=== PATIENT | male | born 1965 ===

== ENCOUNTER 2016-06-27 07:28 | Day surgery (SDC) | payer OTHER ==
[2016-06-16 14:21] VITALS: RESP 18
--- NOTE | 2016-06-27 07:58 | CP.SDSHP ---
Same Day Surgery H & P - History Proposed Procedure: Right foot 2, 3 ,4 ,5 digit Arthroplasty Pre-Op Diagnosis: Right 2nd, 3rd, 4th and 5th digit hammertoe deformities - Previous Medical/Surgical History Cardiac: Other Pulmonary: Other Endocrine/Metabolic: Other Neuro: Other Misc: Other Pain: 4.Moderate Pain - Allergies Allergies: Allergies No Known Allergies Allergy (Verified 02/20/16 13:18) - Physical Exam Vital Signs: Vital Signs 06/27/16 06/27/16 07:48 07:52 Temperature 97.6 F Pulse Rate 76 76 Respiratory 18 Rate Blood Pressure 129/69 O2 Sat by Pulse 97 Oximetry Mental Status: Alert & Oriented x3 Neuro: WNL Heart: WNL Lungs: WNL GI: WNL - {Optional Preform as Required} Breast: Other Abdomen: Other Rectal: Other Integument: Other SOCIAL WORK MSW: Other : Other Ortho: Other ENT: Other - Impression Impression: Pt was seen and examined in SDS. Pt NPO status was confirmed. All Pre-op testing and clearance was in the chart. Pt has exhausted all conservative treatment at this time and is opting for surgical intervention. Pt was explained procedure and post-operative course. All pt's questions were answered to satisfaction. No guarantees were made. Pt understands all risks, benefits and complications of procedure. Pt will follow-up with Dr. Bae Pt. Evaluated Today:Candidate for Anesthesia & Procedure: Yes - Date & Time Date: 06/27/16 Time: 10:00 Short Stay Discharge - Short Stay Discharge Admitting Diagnosis/Reason for Visit: M20.41 Disposition: HOME/ ROUTINE Follow-up: Follow up in Podiatry clinic at [facility] in 1 week Instructions: RICE Therapy (GEN), Cephalexin (By mouth), Oxycodone/ Acetaminophen (By mouth), Narcotic-Analgesic/Acetaminophen (By mouth) Additional Instructions (Diet, Activity): Partial weight bearing to right heel in surgical shoes. No weight bearing to right forefoot. Progress Note/Discharge Note with Instructions: Patient in good/stable condition for discharge home. Pt to resume medications per medical reconciliation. Resume regular diet. Please keep dressing clean, dry, & intact to surgical site, use plastic bag over bandage for showering, wear post op shoe at all times when ambulating, call clinic if you see signs of infection (redness, swelling, malodor), please make an appointment to see Dr. Bae in office/clinic within 1 week for post-op check.
--- NOTE | 2016-06-27 07:58 | CP.PCM.PN ---
Subjective - Date & Time of Evaluation Date of Evaluation: 06/27/16 Time of Evaluation: 08:00 - Subjective Subjective: 51 year old male patient with PMHx of DM, HTN presents today with Right foot 2nd , 3rd 4th and 5th digit hammertoe deformities. He states that he developed hammertoe deformities to 2-5 digits of right foot many years ago. Patient states that his toes generate pain when walking by rubbing against shoes. Patient states that he has tried orthotics and soft paddings which did not help to alleviate the pain. Patient was explained of the surgical plan and agrees with the plan. Patient's was present at the bedside at the time of visit. Patient now wishes for surgical intervention to correct the deformed toes to right foot. Patient confims NPO Objective - Vital Signs/Intake and Output Vital Signs (last 24 hours): Temp Pulse Resp BP Pulse Ox 97.6 F 76 18 129/69 97 06/27/16 07:52 06/27/16 07:52 06/27/16 07:52 06/27/16 07:52 06/27/16 07:52 - Constitutional Appears: Well, Non-toxic, No Acute Distress - Extremities Exam Additional comments: Derm: No open wound noted to all digits. No erythema noted. No drainage, no acute sign of infection is noted. Hyperkeratotic scar noted to dorsum of right foot secondary to previous surgery for fracture many years ago. Vasc: DP and PT pulses palpable 1/4 bilaterally. Increased skin temperature noted to the right lower extremity compared to left lower extremity. Mild edema noted to right foot and moderate non-pitting edema of right 2nd digit. Ortho: Pain on palpation to right 2nd digit. Pain with ROM to right AJ, STJ, and second MPJ. DIPJ flexion noted to all 4 lesser digits. Neuro: protective sensation grossly absent b/l. - Neurological Exam Neurological Exam: Alert, Awake, Oriented x3 - Psychiatric Exam Psychiatric exam: Normal Affect, Normal Mood - Skin Skin Exam: Normal Color, Warm Assessment and Plan - Assessment and Plan (Free Text) Assessment: 51 year old male patient presents with hammertoe deformities of right foot 2,3,4 ,5 digits Plan: Pt was seen and examined in SDS Pt NPO status was confirmed All Pre-op testing and clearance was in the chart Pt has exhausted all conservative treatment at this time and is opting for surgical intervention Pt was explained procedure and post-operative course All pt's questions were answered to satisfaction No guarantees were made Pt understands all risks, benefits and complications of procedure Pt will follow-up with Dr. Bae
[2016-06-27] MEDS ORDERED: ceFAZolin 1 GM in Sodium Chloride 0.9% 100 ML IVPB ONE (07:59)
[2016-06-27] MEDS ORDERED: Bupivacaine 0.5% 50 ML IJ ONE ×2 (07:59→11:15)
[2016-06-27] MEDS ORDERED: Lidocaine 1% Inj (20ml) IJ ONE ×2 (07:59→10:00)
[2016-06-27 08:00] VITALS: BMI 29.0
[2016-06-27] MEDS ORDERED: Lactated Ringer's 1,000 ML IV SCH (08:00)
[2016-06-27] MEDS ORDERED: Propofol 10 mg/ml Inj (20 ML) ONE ×5 (08:34→11:05)
[2016-06-27] MEDS ORDERED: Lidocaine Hydrochloride 5 ML INJ ONE (08:34)
[2016-06-27] MEDS ORDERED: Midazolam 2 MG/2 ML VIAL ONE (08:34)
[2016-06-27] MEDS ORDERED: MethylPREDNISolone Depo 40 mg/ml Inj ONE (09:12)
[2016-06-27] MEDS ORDERED: Lidocaine 1% Inj (20ml) ONE (09:12)
[2016-06-27] MEDS ORDERED: Bupivacaine 0.5% Inj(30mL) ONE (09:12)
[2016-06-27] MEDS ORDERED: Dexamethasone 4 mg/1 ml ONE (09:16)
[2016-06-27] MEDS ORDERED: CEFAZOLIN IVPB ONE (09:45)
[2016-06-27] MEDS ORDERED: SODIUM CHLORIDE 0.9% IVPB ONE (09:45)
[2016-06-27] MEDS ORDERED: Lactated Ringer's 1,000 ML IV ONE (09:47)
[2016-06-27] MEDS ORDERED: Ketamine 50 mg/ml Inj (10 ml) ONE (09:51)
[2016-06-27] MEDS ORDERED: Bupivacaine 0.5% Inj(30mL) IJ ONE (10:00)
[2016-06-27] MEDS ORDERED: ePHEDrine 50 mg/ml Inj ONE (10:37)
[2016-06-27] MEDS ORDERED: Dexamethasone 4 mg/1 ml IM ONE (11:15)
[2016-06-27] MEDS ORDERED: Oxycodone/Acetaminophen 5/325 mg Tab PO PRN ×2 (11:31)
--- NOTE | 2016-06-27 11:37 | PCM.SURG1 ---
Surgeon's Initial Post Op Note - Surgeon's Notes Surgeon: Milton Bae DPM Catering Assistant: Poncho Mcdonough, PGY1; Wanda Viera PGY1 Type of Anesthesia: General IV, Local Anesthesia Administered By: Dr. Gallegos Pre-Operative Diagnosis: Right foot hammertoe deformity to digits 2-5 Operative Findings: See dictation. -I: 1cc of 0.4% dexamethasone phosphate; 7 cc of 0.5% marcaine plain. -M: 3-0 vicryl, 4-0 vicryl, 4-0 nylon, 0.045 k- wires x3 Post-Operative Diagnosis: same as above Operation Performed: Rigt foot PIPJ arthroplasties for digits 2-5. Specimen/Specimens Removed: none Estimated Blood Loss: EBL {In ML}: 0 Blood Products Given: N/A Drains Used: No Drains Post-Op Condition: Good Date of Surgery/Procedure: 06/27/16 Time of Surgery/Procedure: 09:45
[2016-06-27 13:48] VITALS: BP 128/76; PULSE 78; TEMP 97.6; O2SAT 100
--- NOTE | 2016-06-27 14:32 | RAD ---
PROCEDURE: Right Foot Radiographs. HISTORY: s/p right foot surgery COMPARISON: Comparison made with prior radiographs 05/30/2016. FINDINGS: BONES: Apparent mild post resection changes most of the distal phalanx right 2nd toe. There is persistent surrounding soft tissue swelling. Interval placement of K-wires traversing the 3rd 4th and 5th phalanges, presumably reducing hammertoe deformities. . . Questionable of postoperative partial resection changes distal margins of the 4th and 5th proximal phalanges. Again noted is a metallic fixation plate which is attached to the dorsal margin of the 2nd metatarsal unchanged. JOINTS: Minor hallux valgus deformity with overgrowth of the head of the 1st metatarsal and mild DJD 1st MTP joint. . There is also on mild DJD DIP joint great toe SOFT TISSUES: As above OTHER FINDINGS: None. IMPRESSION: Status post amputation most of the distal phalanx great toe with surrounding soft tissue swelling. Postop changes 3rd 4th and 5th digits as described. Stable on fixation plate attached to the dorsal aspect of the 2nd metatarsal.
--- NOTE | 2016-06-30 08:13 | OP ---
PROCEDURE DATE: 06/27/2016 PRIMARY SURGEON: Milton Bae DPM ASSISTANTS: Poncho Mcdonough, PGY-1 and Wanda Viera, PGY-1 ANESTHESIOLOGIST: Dr. Gallegos ANESTHESIA: IV sedation with local. PREOPERATIVE DIAGNOSIS: Right foot second, third, fourth, and fifth digit contracted hammertoe deformity. POSTOPERATIVE DIAGNOSES: Right foot second, third, fourth and fifth digit contracted hammertoe deformity. NAME OF PROCEDURE: Right foot second, third, fourth and fifth digit PIPJ arthroplasty, hammertoe correction. INDICATIONS: The patient is a 51-year-old male with the above diagnosis. The patient has exhausted all conservative treatment options and now requests surgical intervention. The patient signed the consent after careful explanation of risks, benefits, complications and alternatives for the surgical procedure. No guarantees were either given nor implied. The patient's n.p.o. status was confirmed prior to taking the patient to the OR. PREPARATION: The patient was brought to the operating room and placed on the operating room table in a supine position. A well-padded pneumatic ankle tourniquet was applied to the patient's right ankle in the supramalleolar position. After induction of IV sedation, the patient received a total of 15 mL of a 1:1 mixture of 0.5% Marcaine plain to 1% lidocaine plain in a local block type fashion to the right foot. Once local anesthesia was confirmed to be achieved, the right foot was then prepped and draped in the usual sterile manner. Esmarch was utilized to exsanguinate the patient's foot. Pneumatic tourniquet was then infiltrated to 250 mmHg and the procedure began. PROCEDURES: The attending was present during the entire case. 1. Attention was directed to the dorsal aspect of the second digit, which was noted to be contracted. An approximately 3 cm incision was made over the dorsal aspect of the proximal interphalangeal joint in a longitudinal fashion. Sharp dissection was carried down through the deep tissues, being careful to identify and retract all vital neurovascular structures. At this time, a transverse tenotomy and capsulotomy was performed at the proximal interphalangeal joint and the head of the proximal phalanx was then freed of its capsular and ligamentous attachments. Next, utilizing oscillating bone saw , the head of the proximal phalanx was resected and passed from the operative field. The incision site was then flushed with copious amounts of normal sterile saline. The extensor tendon was then reapproximated and sutured with #3 -0 Vicryl. The skin was reapproximated and sutured using 4-0 nylon. 2. Attention was then directed to the dorsal aspects of the third, fourth and fifth digits respectively, where in sequential order, a linear longitudinal incision was made overlying the respective proximal interphalangeal joints, approximating 2 cm each. The incisions were then deepened through subcutaneous tissue with care being taken to identify and retract all vital neurovascular structures. All bleeders were cauterized and ligated as necessary. At this time, transverse tenotomies and capsulotomies were performed to the proximal interphalangeal joints of the respective third, fourth and fifth digits of the right foot. The heads of the proximal phalanxes were then freed of their capsular and ligamentous attachments. Next, utilizing oscillating saw, the heads of the proximal phalanxes of the right third, fourth, and fifth digits were resected and passed from the operative field in sequential order. The respective incision sites were then flushed with copious amounts of normal sterile saline. Next, in sequential order, a 0.045 inch K-wire was driven from the base of the middle phalanx exiting the distal aspect of the respective digits. The K-wire was then retrograded proximally into the remaining aspect of the proximal phalanx for use digit respectively. Correction of the deformities for the third, fourth and fifth digits were assessed at this time and noted to be excellent. The respective extensor tendons were reapproximated using 4-0 Vicryl. Skin layers were reapproximated and coapted using 4-0 nylon. Injected 7cc's of 0.5% marcaine plain and 1cc of 0.4% dexamethasone phosphates along each incision site, in a local block type fashion. . All incision sites were then dressed with sterile wet to dry saline dressing, sterile 4 x 4 gauze, Kerlix, and Elastoplast. POSTOPERATIVE CONDITION: The patient tolerated the anesthesia and procedure well and was escorted to the recovery room with vital signs stable. Prompt capillary refill time was noted to return to the second, fourth and fifth digits postoperatively and following time in PACU, neurovascular status returned to the third digit. The patient will follow up with Dr. Bae on the outpatient basis. Poncho Mcdonough DPM Milton Bae DPM cc: [id number] TT: 06/30/2016 08:12:57 en MTDMin
== END 2016-06-27 13:55 | disposition home or self-care (01) ==
LOC: H.OPSURG 07:28
PROVIDERS: ATTEND Podiatrist
DX: M20.41 Other hammer toe(s) (acquired), right foot (principal); I10 Essential (primary) hypertension; E11.8 Type 2 diabetes mellitus with unspecified complications; Z79.4 Long term (current) use of insulin

== ENCOUNTER 2016-09-03 13:20 | Emergency (ER) | payer SELFPAY ==
[2016-09-03 13:20] VITALS: BMI 29.0
[2016-09-03 13:34] VITALS: BP 116/69; PULSE 84; RESP 16; TEMP 98.3; O2SAT 100
--- NOTE | 2016-09-03 13:45 | ED PDOC ---
HPI: General Adult Time Seen by Provider: 09/03/16 13:35 Chief Complaint (Nursing): Lower Extremity Problem/Injury History Per: Patient Additional Complaint(s): Pt. states 10 days ago he developed atraumatic L knee pain. Reports pain began the day after he walked approximately 3-4 miles. Furter states he also developed a blister on his R great toe after the walk which has begun to dry up but he also developed another blister on the L foot a few days later which has also dried up. Denies fever, trauma, numbness, tingling. Past Medical History Reviewed: Historical Data, Nursing Documentation, Vital Signs Vital Signs: Last Vital Signs Temp 98.3 F 09/03/16 13:30 Pulse 84 09/03/16 13:30 Resp 16 09/03/16 13:30 BP 116/69 09/03/16 13:30 Pulse Ox 100 09/03/16 13:47 - Medical History PMH: Anxiety, Depression, Diabetes, HTN, Hypercholesterolemia, Hypothyroidism Denies: Chronic Kidney Disease - Family History Family History: States: No Known Family Hx - Home Medications Home Medications: Ambulatory Orders Medication Instructions Recorded Aspirin [Ecotrin] 81 mg PO QPM #0 tabec 02/23/16 Atorvastatin [Lipitor] 20 mg PO DAILY #0 tab 02/23/16 Citalopram Hydrobromide [Celexa] 20 mg PO QPM #0 tablet 02/23/16 Gabapentin [Neurontin] 600 mg PO TID #0 tablet 02/23/16 Insulin Aspart, Recombinant 25 unit SC ACTID #0 unit 02/23/16 [Novolog] Levothyroxine [Synthroid] 100 mcg PO DAILY #0 tab 02/23/16 Lisinopril [Zestril] 20 mg PO DAILY #0 tab 02/23/16 MetFORMIN [glucoPHAGE] 1,000 mg PO BID #0 tab 02/23/16 hydroCHLOROthiazide [Microzide] 12.5 mg PO QPM #0 cap 02/23/16 Cephalexin [Keflex] 500 mg PO TID 06/27/16 Insulin Detemir [Levemir] 35 units SC BID 06/27/16 oxyCODONE/Acetaminophen [Percocet 1 tab PO .Q4-6 PRN 06/27/16 5/325 mg Tab] Meloxicam [Mobic] 1 - 2 tab PO DAILY PRN #30 tab 09/03/16 - Allergies Allergies/Adverse Reactions: Allergies Allergy/AdvReac Type Severity Reaction Status Date / Time No Known Allergies Allergy Verified 02/20/16 13:18 Review of Systems ROS Statement: Except As Marked, All Systems Reviewed And Found Negative Physical Exam - Physical Exam Appears: Positive for: Well, Non-toxic, No Acute Distress Skin: Positive for: Normal Color, Warm. Negative for: Rash Extremity: Positive for: Other (Dry non-intact vesicles on R great toe and on plantar surface of L foot without surrounding erythema, discharge, or swelling; L knee with minimal tenderness and no swelling or deformity; FROM actively of L knee) - ECG O2 Sat by Pulse Oximetry: 100 - Radiology X-Ray: Interpreted by Me (Knee x-ray) X-Ray Interpretation: No Acute Disease - Progress ED Course And Treament: FSBS: 248 Pt. evaluated by Nancy, podiatry resident, who discussed case with Dr. Bae and outpt. f/u was arranged. Labs were initially ordered at podiatry request but cancelled as they were no longer necessary. Vesciles were debrided in ED by Nancy. Disposition - Clinical Impression Clinical Impression: Friction blister, Knee pain - Patient ED Disposition Is Patient to be Admitted: No - Disposition Referrals: Podiatry Clinic [Outside] Disposition: Routine/Home Disposition Time: 14:57 Condition: STABLE Prescriptions: Meloxicam [Mobic] 1 - 2 tab PO DAILY PRN #30 tab PRN Reason: Pain, Mild (1-3) Instructions: Knee Pain (ED)
--- NOTE | 2016-09-03 15:32 | RAD ---
PROCEDURE: Left Knee Radiographs. HISTORY: COMPARISON: None available. FINDINGS: BONES: No acute displaced fracture. JOINTS: No dislocation. JOINT EFFUSION: No significant joint effusion. OTHER FINDINGS: None. IMPRESSION: No acute displaced fracture, dislocation, or significant joint effusion identified. If symptoms persist, or if there is continued clinical concern, x-ray follow-up in 7-10 days should be considered.
--- NOTE | 2016-09-03 17:43 | CP.PCM.CON ---
History of Present Illness - History of Present Illness History of Present Illness: 51 y.o male with pmhx of DM, HTN, Hypercholesterolemia, Hypothyroidism seen at bedside in ED for blisters on his feet x 2 weeks. Patient states that he developed blisters 2 weeks ago and when they popped he was applying bacitracin and gauze on them. He states that he had surgery on his right foot 2 months ago for 2-5 digit hammertoes. Patient states that because he is a diabetic, he was concerned about the blisters that had popped. Patient denies any recent trauma or injury to his feet. He states that he usually wears diabetic shoes. Patient denies any n/f/v/d/c/sob. Review of Systems - Constitutional Constitutional: As Per HPI Past Patient History - Infectious Disease Hx of Infectious Diseases: MRSA - Tetanus Immunizations Tetanus Immunization: Up to Date (Tdap received 01/30/10) - Past Medical History & Family History Past Medical History?: Yes - Past Social History Smoking Status: Never Smoked - CARDIAC Hx Hypercholesterolemia: Yes Hx Hypertension: Yes - PULMONARY Hx Respiratory Disorders: No - NEUROLOGICAL Hx Neurological Disorder: Yes Other/Comment: NEUROPATHY - HEENT Hx HEENT Problems: No - RENAL Hx Chronic Kidney Disease: No - ENDOCRINE/METABOLIC Hx Hypothyroidism: Yes - HEMATOLOGICAL/ONCOLOGICAL Hx Blood Disorders: No Hx Blood Transfusions: No - INTEGUMENTARY Hx Dermatological Problems: No - MUSCULOSKELETAL/RHEUMATOLOGICAL Hx Musculoskeletal Disorders: No - GASTROINTESTINAL Hx Gastrointestinal Disorders: No - GENITOURINARY/GYNECOLOGICAL Hx Genitourinary Disorders: No - PSYCHIATRIC Hx Anxiety: Yes Hx Depression: Yes Hx Substance Use: Yes (5 years ago) - SURGICAL HISTORY Hx Surgeries: Yes Hx Musculoskeletal Surgery: (AMPUTATION 3RD DIGIT-RIGHT;4TH DIGIT LEFT;FOOT SURGERY X2-1-TENDON;1 FX) Hx Orthopedic Surgery: Yes (LEFT SHOULDER ROTATOR CUFF) - ANESTHESIA Hx Anesthesia: Yes Hx Anesthesia Reactions: No Hx Malignant Hyperthermia: No Meds Home Medications: Home Medication List Medication Instructions Recorded Confirmed Type Meloxicam [Mobic] 1 - 2 tab PO DAILY PRN #30 tab 09/03/16 Rx Allergies/Adverse Reactions: Allergies Allergy/AdvReac Type Severity Reaction Status Date / Time No Known Allergies Allergy Verified 02/20/16 13:18 Physical Exam - Constitutional Appears: Well, Non-toxic, No Acute Distress - Extremities Exam Additional comments: Vasc: DP/PT 2/4 b/l, TG wnl, CFT < 3 sec to all digits neuro: grossly intact derm: no erythema, localized hallucal edema, open ulceration to plantar medial hallux measuring 0.2 x 0.3 cm with granular base, fibrotic border, no drainage, active bleeding, no abscess, no fluctuance, no tracking or tunneling ortho: pain on palpation of plantar medial hallux - Neurological Exam Neurological exam: Alert, Oriented x3 - Psychiatric Exam Psychiatric exam: Normal Affect, Normal Mood Results - Vital Signs Recent Vital Signs: Last Vital Signs Temp 98.3 F 09/03/16 13:30 Pulse 84 09/03/16 13:30 Resp 16 09/03/16 13:30 BP 116/69 09/03/16 13:30 Pulse Ox 100 09/03/16 14:58 Assessment & Plan - Assessment and Plan (Free Text) Assessment: 51 y/o male seen at bedside for superficial ulceration s/p blister formation Plan: patient evaluated and chart reviewed discussed in detail with attending Dr. Bae labs and vitals reviewed excision debridement of ulceration using a #15 blade to healthy granular tissue patient tolerated procedure well applied bacitracin, DSD to R foot stressed importance of glucose control patient to keep dressing c/d/i. patient to follow up with Dr. Bae in [facility] podiatry clinic 1 week, 09/10/16
== END 2016-09-03 15:05 | disposition home or self-care (01) ==
LOC: H.ER 13:20
DX: M25.562 Pain in left knee (principal); E11.9 Type 2 diabetes mellitus without complications; Z79.4 Long term (current) use of insulin

== ENCOUNTER 2017-06-11 13:42 | Emergency (ER) | payer SELFPAY ==
[2017-06-11 13:42] VITALS: BMI 29.0
[2017-06-11 13:53] VITALS: BP 114/70; PULSE 79; RESP 16; TEMP 98; O2SAT 100
--- NOTE | 2017-06-11 14:59 | ED PDOC ---
Lower Extremity Pain/Injury Time Seen by Provider: 06/11/17 14:11 Chief Complaint (Nursing): Lower Extremity Problem/Injury Chief Complaint (Provider): Left heel pain History Per: Patient History/Exam Limitations: no limitations Onset/Duration Of Symptoms: Days Current Symptoms Are (Timing): Still Present Additional Complaint(s): 52yo male with history of diabetes, presents to ED for evaluation of left heel pain. He states he has had plantar fascitis on his left foot and the symptoms resolved after he took anti-inflammatories. Patient denies any trauma, injury, fever, chills, swelling, redness or decreased ROM in his left foot. Past Medical History Reviewed: Historical Data, Nursing Documentation, Vital Signs Vital Signs: Last Vital Signs Temp 98.0 F 06/11/17 13:51 Pulse 79 06/11/17 13:51 Resp 16 06/11/17 13:51 BP 114/70 06/11/17 13:51 Pulse Ox 100 06/11/17 13:51 - Medical History PMH: Anxiety, Depression, Diabetes, HTN, Hypercholesterolemia, Hypothyroidism Denies: Chronic Kidney Disease - Surgical History Surgical History: No Surg Hx - Family History Family History: States: Unknown Family Hx - Home Medications Home Medications: Ambulatory Orders Medication Instructions Recorded Aspirin [Ecotrin] 81 mg PO QPM #0 tabec 02/23/16 Atorvastatin [Lipitor] 20 mg PO DAILY #0 tab 02/23/16 Citalopram Hydrobromide [Celexa] 20 mg PO QPM #0 tablet 02/23/16 Gabapentin [Neurontin] 600 mg PO TID #0 tablet 02/23/16 Insulin Aspart, Recombinant 25 unit SC ACTID #0 unit 02/23/16 [Novolog] Levothyroxine [Synthroid] 100 mcg PO DAILY #0 tab 02/23/16 Lisinopril [Zestril] 20 mg PO DAILY #0 tab 02/23/16 MetFORMIN [glucoPHAGE] 1,000 mg PO BID #0 tab 02/23/16 hydroCHLOROthiazide [Microzide] 12.5 mg PO QPM #0 cap 02/23/16 Cephalexin [Keflex] 500 mg PO TID 06/27/16 Insulin Detemir [Levemir] 35 units SC BID 06/27/16 oxyCODONE/Acetaminophen [Percocet 1 tab PO .Q4-6 PRN 06/27/16 5/325 mg Tab] Meloxicam [Mobic] 1 - 2 tab PO DAILY PRN #30 tab 09/03/16 Meloxicam [Mobic] 15 mg PO DAILY #30 tab 06/11/17 - Allergies Allergies/Adverse Reactions: Allergies Allergy/AdvReac Type Severity Reaction Status Date / Time No Known Allergies Allergy Verified 06/11/17 13:51 Review of Systems ROS Statement: Except As Marked, All Systems Reviewed And Found Negative Constitutional: Negative for: Fever, Chills Musculoskeletal: Positive for: Foot Pain (left) Neurological: Negative for: Weakness, Numbness Physical Exam - Reviewed Nursing Documentation Reviewed: Yes Vital Signs Reviewed: Yes - Physical Exam Comments: GENERAL APPEARANCE: Patient is awake, alert, oriented x 3, in no acute distress. SKIN: Warm, dry; (-) cyanosis. LOWER EXTREMITY: (+) FROM of left foot at ankle, (-) tenderness, (-) swelling, ( -) erythema. CARDIOVASCULAR: (+) distal pulse. NEUROLOGIC: (+) distal sensation. - ECG O2 Sat by Pulse Oximetry: 100 (RA) Pulse Ox Interpretation: Normal Medical Decision Making Medical Decision Making: Impression: Heel pain, likely plantar fascitis Plan: -- Based on history and exam, plan will be for discharge home with prescription for anti-inflammatories. Advised to follow up with primary care physician in 1-2 days without fail. Advised to take medication as prescribed. Return to the emergency room at any time for any new or worsening symptoms. Patient states he fully agrees with and understands discharge instructions. States that he agrees with the plan and disposition. Verbalized and repeated discharge instructions and plan. I have given the patient opportunity to ask any additional questions. Scribe Attestation: Documented by Laurence Johnston acting as a scribe for Lashonda Pugh PA-C. Provider Attestation: All medical record entries made by the Scribe were at my direction and personally dictated by me. I have reviewed the chart and agree that the record accurately reflects my personal performance of the history, physical exam, medical decision making, and the department course for this patient. I have also personally directed, reviewed, and agree with the discharge instructions and disposition. Disposition - Clinical Impression Clinical Impression: Pain of left heel - Patient ED Disposition Is Patient to be Admitted: No Counseled Patient/Family Regarding: Diagnosis, Need For Followup, Rx Given - Disposition Disposition: Routine/Home Disposition Time: 14:20 Condition: STABLE Additional Instructions: Thank you for letting us take care of you today. You were treated for left heel pain, consider plantar fasciitis. The emergency medical care you received today was directed at your acute symptoms. If you were prescribed any medication, please fill it and take as directed. It may take several days for your symptoms to resolve. Return to the Emergency Department if your symptoms worsen, do not improve, or if you have any other problems. Please contact your doctor in 2 days for re-evaluation and follow up. Bring any paperwork you were given at discharge with you along with any medications you are taking to your follow up visit. Our treatment cannot replace ongoing medical care by a primary care provider (PCP) outside of the emergency department. Thank you for allowing the [facility] team to be part of your care today. Prescriptions: Meloxicam [Mobic] 15 mg PO DAILY #30 tab Instructions: Heel Pain (Caused by Plantar Fasciitis) (DC) Forms: [employer] [facility] (Pashto) - PA / BUSINESS INSTRUCTOR / Resident Statement MD/DO has reviewed & agrees with the documentation as recorded.
== END 2017-06-11 14:46 | disposition home or self-care (01) ==
LOC: H.ER 13:42
DX: M79.672 Pain in left foot (principal); E03.9 Hypothyroidism, unspecified; E11.9 Type 2 diabetes mellitus without complications; E78.00 Pure hypercholesterolemia, unspecified; F32.9 Major depressive disorder, single episode, unspecified; F41.9 Anxiety disorder, unspecified; I10 Essential (primary) hypertension; Z79.4 Long term (current) use of insulin; Z79.82 Long term (current) use of aspirin

== ENCOUNTER 2017-12-02 16:14 | Observation (INO) | payer SELFPAY ==
[2017-12-02 16:15] VITALS: BMI 29.0
[2017-12-02] MEDS ORDERED: Sodium Chloride 0.9% 1,000 ML IV STA (16:47)
--- NOTE | 2017-12-02 16:49 | ED PDOC ---
Syncope/Near Syncope/Dizziness Time Seen by Provider: 12/02/17 16:33 Chief Complaint (Nursing): Weakness/Neurological Deficit History Per: Patient Onset/Duration Of Symptoms: Days (1) Current Symptoms Are (Timing): Still Present Seizure Or Post-ictal Symptoms: None Fall Associated With With Symptoms: No Severity: Mild Additional Complaint(s): Fver assoc with generalized malaise and headache since this AM. Denies cough, abd pain, vomiting or diarrhea. Denies dysuria but has frequency. Past Medical History Vital Signs: Last Vital Signs Temp 102.6 F H 12/02/17 16:21 Pulse 99 H 12/02/17 16:21 Resp 16 12/02/17 16:21 BP 91/54 L 12/02/17 16:21 Pulse Ox 98 12/02/17 16:21 - Medical History PMH: Anxiety, Depression, Diabetes, HTN, Hypercholesterolemia, Hypothyroidism Denies: Chronic Kidney Disease - Family History Family History: States: Unknown Family Hx - Home Medications Home Medications: Ambulatory Orders Medication Instructions Recorded Aspirin [Ecotrin] 81 mg PO QPM #0 tabec 02/23/16 Atorvastatin [Lipitor] 20 mg PO DAILY #0 tab 02/23/16 Citalopram Hydrobromide [Celexa] 20 mg PO QPM #0 tablet 02/23/16 Gabapentin [Neurontin] 600 mg PO TID #0 tablet 02/23/16 Insulin Aspart, Recombinant 25 unit SC ACTID #0 unit 02/23/16 [Novolog] Levothyroxine [Synthroid] 100 mcg PO DAILY #0 tab 02/23/16 Lisinopril [Zestril] 20 mg PO DAILY #0 tab 02/23/16 MetFORMIN [glucoPHAGE] 1,000 mg PO BID #0 tab 02/23/16 hydroCHLOROthiazide [Microzide] 12.5 mg PO QPM #0 cap 02/23/16 Cephalexin [Keflex] 500 mg PO TID 06/27/16 Insulin Detemir [Levemir] 35 units SC BID 06/27/16 oxyCODONE/Acetaminophen [Percocet 1 tab PO .Q4-6 PRN 06/27/16 5/325 mg Tab] Meloxicam [Mobic] 1 - 2 tab PO DAILY PRN #30 tab 09/03/16 Meloxicam [Mobic] 15 mg PO DAILY #30 tab 06/11/17 - Allergies Allergies/Adverse Reactions: Allergies Allergy/AdvReac Type Severity Reaction Status Date / Time No Known Allergies Allergy Verified 12/02/17 16:21 Review of Systems ROS Statement: Except As Marked, All Systems Reviewed And Found Negative Constitutional: Positive for: Fever Genitourinary Male: Positive for: Frequency Physical Exam - Reviewed Nursing Documentation Reviewed: Yes Vital Signs Reviewed: Yes - Physical Exam Appears: Positive for: Non-toxic, No Acute Distress Head Exam: Positive for: ATRAUMATIC, NORMAL INSPECTION, NORMOCEPHALIC Skin: Positive for: Normal Color, Warm, DRY Eye Exam: Positive for: EOMI, Normal appearance, PERRL ENT: Positive for: Normal ENT Inspection Neck: Positive for: Normal, Painless ROM Cardiovascular/Chest: Positive for: Regular Rate, Rhythm Respiratory: Positive for: CNT, Normal Breath Sounds Gastrointestinal/Abdominal: Positive for: Soft. Negative for: Tenderness Back: Positive for: Normal Inspection Extremity: Positive for: Normal ROM Neurologic/Psych: Positive for: Alert, Oriented - Laboratory Results Result Diagrams: 12/02/17 17:07 12/02/17 17:07 - ECG O2 Sat by Pulse Oximetry: 98 Disposition - Clinical Impression Clinical Impression: UTI (urinary tract infection), Sepsis - Patient ED Disposition Is Patient to be Admitted: Yes - Disposition Disposition Time: 19:54 Condition: FAIR Forms: [facility] (Serbian) - Pt Status Changed To: Hospital Disposition Of: Inpatient - Admit Certification Admit to Inpatient:: After my assessment, the patient will require hospitalization for at least two midnights. This is because of the severity of symptoms shown, intensity of services needed, and/or the medical risk in this patient being treated as an outpatient. - POA Present On Arrival: None
[2017-12-02 17:18] LABS: BASO # 0.1 K/uL (0.0-0.2); EOS # 0.1 K/uL (0.0-0.7); EOS % 0.6 % (0.0-4.0); HEMOGLOBIN 13.1 g/dL (12.0-18.0); LYMPH # 2.9 K/uL (1.0-4.3); LYMPH % 23.3 % (20.0-40.0); MEAN CELL VOLUME 88.6 fl (80.0-94.0); MEAN CORPUSCULAR HEMOGLOBIN 30.1 pg (27.0-31.0); MEAN PLATELET VOLUME 8.6 fl (7.2-11.7); MONO # 0.9 K/uL (0.0-0.8); MONO % 7.3 % (0.0-10.0); NEUT # 8.4 K/uL (1.8-7.0); NEUT % 67.8 % (50.0-75.0); RBC 4.36 Mil/uL (4.40-5.90); RED CELL DISTRIBUTION WIDTH 13.4 % (11.5-14.5); WHITE BLOOD COUNT 12.4 K/uL (4.8-10.8)
[2017-12-02 17:28] LABS: CALCIUM 8.9 mg/dL (8.4-10.2)
--- NOTE | 2017-12-02 17:44 | RAD ---
Date of service: 12/02/2017 HISTORY: Fever COMPARISON: 06/16/2016. TECHNIQUE: Chest PA and lateral FINDINGS: LUNGS: No active pulmonary disease. PLEURA: No significant pleural effusion identified. No pneumothorax apparent. CARDIOVASCULAR: No radiographic findings to suggest acute or significant cardiovascular disease. OSSEOUS STRUCTURES: No significant abnormalities. VISUALIZED UPPER ABDOMEN: Normal. OTHER FINDINGS: None. IMPRESSION: No active disease. No significant interval change compared to the prior examination(s).
[2017-12-02 17:45] LABS: ALB/GLOB RATIO 1.3 (1.0-2.1); ALBUMIN 4.1 g/dL (3.5-5.0)
[2017-12-02 18:55] LABS: URINE BACTERIA RARE (<OCC); URINE BILIRUBIN NEGATIVE (NEGATIVE); URINE BLOOD NEGATIVE (NEGATIVE); URINE CLARITY CLOUDY (Clear); URINE COLOR AMBER (YELLOW); URINE GLUCOSE (UA) >=500 mg/dL (Normal); URINE HYALINE CAST >20 /hpf (0-2); URINE LEUKOCYTE ESTERASE NEG Leu/uL (Negative); URINE PROTEIN 30 mg/dL (NEGATIVE)
[2017-12-02 19:08] LABS: VENOUS BLOOD GAS BASE EXCESS -1.2 mmol/L (0.0-2.0); VENOUS BLOOD GAS PCO2 39 mmHg (40-60); VENOUS BLOOD GAS PO2 60 mm/Hg (30-55); VENOUS BLOOD PH 7.39 (7.32-7.43)
[2017-12-02] MEDS ORDERED: Sodium Chloride 0.9% 500 ML IV ONE (21:23)
--- NOTE | 2017-12-02 22:21 | CP.PCM.HP ---
History of Present Illness - History of Present Illness History of Present Illness: 52 yr old M presents to ED with complaint of overall malaise, body aches, headache which started this morning at 11am while he was at work and persisted until he came in to ED straight from work at 2:45pm. PMHx includes IDDM type 2, hypothyroidism, HTN and HLD. Associated symptoms are blurry vision "seeing spots ", increased urinary frequency, generalized abdominal pain (/10, "gas like", no exacerbating or alleviating factors). Denies nausea, vomiting, diarrhea, dysuria, hematuria, syncope, weakness, dizziness. 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 FMHx: unknown SocHx: denies current tobacco/Etoh or drug abuse (reports former Etoh and cocaine abuse-last was 7 yrs ago) Medications: Aspirin 81 mg PO QD, Atorvastatin 20 mg PO QHS, Gabapentin 600mg PO TID, Metformin 1,000 mg PO BID, Levemir 35 units SC BID, Novolog 25 units SCTID, Levothyroxine 100 mcg PO QD, Lisinopril 20mg PO QD, HCTZ 12.5mg PO QD, Citalopram 20mg PO QD Allergies: NKDA Code status: Full code Emergency contact: Sanna Tolentino () [phone] Pharmacy: [facility] ER course: BP 91/54 mmHg, HR 99, Temp 102.6F, Resp rate 16, SpO2 98% on room air -EKG: normal sinus rhythm at 84 bpm, no significant ST-T changes -CXR: no active disease -CBC: WBC 12.4, neutrophil % 67.8, rest wnl -VBG: pH 7.39, pCO2 39, HCO3 23.8, lactate 0.9, glucose 190 -CMP: Na 134, K+ 5.0, Cl 103, HCO3 22, AG 14, BUN 37/Cr 1.9, est GFR 37 -UA: trace ketones, negative leukocyte, negative nitrate, glucose>500, hyaline casts>20; color martinez, cloudy -ED treatment: Tylenol 650mg PO once, NS IV at 150mls/hr -Blood culture and urine culture pending Present on Admission - Present on Admission Any Indicators Present on Admission: Yes History of DVT/PE: No History of Uncontrolled Diabetes: Yes Urinary Catheter: No Decubitus Ulcer Present: No History Surgical Site Infection Following: None Review of Systems - Constitutional Constitutional: Chills, Headache. absent: Fever - EENT Eyes: Blurred Vision Ears: absent: Disequilibrium, Dizziness Nose/Mouth/Throat: Neck Pain. absent: Nasal Congestion, Sore Throat - Cardiovascular Cardiovascular: absent: Chest Pain, Dyspnea - Respiratory Respiratory: absent: Cough, Hemoptysis - Gastrointestinal Gastrointestinal: Abdominal Pain ("gas like"). absent: Constipation, Diarrhea, Hematemesis, Hematochezia, Nausea, Vomiting - Genitourinary Genitourinary: Urinary Frequency. absent: Difficulty Urinating, Dysuria, Flank Pain, Hematuria - Musculoskeletal Musculoskeletal: Myalgias (neck, shoulders) - Integumentary Integumentary: absent: Wounds - Neurological Neurological: absent: Confusion, Dizziness, Numbness, Weakness - Psychiatric Psychiatric: Depression - Endocrine Endocrine: Polyphagia, Polyuria. absent: Palpitations, Polydipsia - Hematologic/Lymphatic Hematologic: absent: Easy Bleeding, Easy Bruising Past Patient History - Infectious Disease Hx of Infectious Diseases: MRSA - Tetanus Immunizations Tetanus Immunization: Up to Date (Tdap received 01/30/10) - Past Medical History & Family History Past Medical History?: Yes - Past Social History Smoking Status: Never Smoked - CARDIAC Hx Hypercholesterolemia: Yes Hx Hypertension: Yes - PULMONARY Hx Respiratory Disorders: No - NEUROLOGICAL Hx Neurological Disorder: Yes Other/Comment: NEUROPATHY - HEENT Hx HEENT Problems: No - RENAL Hx Chronic Kidney Disease: No - ENDOCRINE/METABOLIC Hx Hypothyroidism: Yes - HEMATOLOGICAL/ONCOLOGICAL Hx Blood Disorders: No Hx Blood Transfusions: No - INTEGUMENTARY Hx Dermatological Problems: No - MUSCULOSKELETAL/RHEUMATOLOGICAL Hx Musculoskeletal Disorders: No - GASTROINTESTINAL Hx Gastrointestinal Disorders: No - GENITOURINARY/GYNECOLOGICAL Hx Genitourinary Disorders: No - PSYCHIATRIC Hx Anxiety: Yes Hx Depression: Yes - SURGICAL HISTORY Hx Surgeries: Yes Hx Musculoskeletal Surgery: (AMPUTATION 3RD DIGIT-RIGHT;4TH DIGIT LEFT;FOOT SURGERY X2-1-TENDON;1 FX) Hx Orthopedic Surgery: Yes (LEFT SHOULDER ROTATOR CUFF) - ANESTHESIA Hx Anesthesia: Yes Hx Anesthesia Reactions: No Hx Malignant Hyperthermia: No Meds Allergies/Adverse Reactions: Allergies Allergy/AdvReac Type Severity Reaction Status Date / Time No Known Allergies Allergy Verified 12/02/17 16:21 Physical Exam - Constitutional Appears: No Acute Distress - Head Exam Head Exam: ATRAUMATIC, NORMOCEPHALIC - Eye Exam Eye Exam: EOMI, PERRL Pupil Exam: NORMAL ACCOMODATION - ENT Exam ENT Exam: Mucous Membranes Moist - Neck Exam Neck exam: Positive for: Full Rom. Negative for: Lymphadenopathy, Meningismus, Tenderness, Thyromegaly - Respiratory Exam Respiratory Exam: Clear to Auscultation Bilateral, NORMAL BREATHING PATTERN. absent: Rales, Rhonchi - Cardiovascular Exam Cardiovascular Exam: REGULAR RHYTHM, +S1, +S2 - GI/Abdominal Exam GI & Abdominal Exam: Normal Bowel Sounds, Soft (obese). absent: Distended, Firm , Rebound, Rigid, Tenderness - Extremities Exam Extremities exam: Positive for: full ROM, pedal pulses present. Negative for: pedal edema, tenderness Additional comments: DIP amputation of left foot (2nd digit, 3rd digit) - Back Exam Back exam: FULL ROM. absent: CVA tenderness (L), CVA tenderness (R) - Neurological Exam Neurological exam: Alert, CN II-XII Intact, Oriented x3 - Psychiatric Exam Psychiatric exam: Normal Affect, Normal Mood - Skin Skin Exam: Dry, Normal Color, Warm Results - Vital Signs Recent Vital Signs: Last Vital Signs Temp 98.8 F 12/02/17 19:22 Pulse 82 12/02/17 19:22 Resp 16 12/02/17 19:22 BP 91/54 L 12/02/17 16:21 Pulse Ox 98 12/02/17 19:54 - Labs Result Diagrams: 12/02/17 17:07 12/02/17 17:07 Labs: Laboratory Results - last 24 hr 12/02/17 12/02/17 12/02/17 17:07 17:07 18:32 WBC 12.4 H D RBC 4.36 L Hgb 13.1 Hct 38.6 MCV 88.6 MCH 30.1 MCHC 34.0 RDW 13.4 Plt Count 265 MPV 8.6 Neut % (Auto) 67.8 Lymph % (Auto) 23.3 Tyrrell % (Auto) 7.3 Eos % (Auto) 0.6 Baso % (Auto) 1.0 Neut # (Auto) 8.4 H Lymph # (Auto) 2.9 Tyrrell # (Auto) 0.9 H Eos # (Auto) 0.1 Baso # (Auto) 0.1 pO2 VBG pH VBG pCO2 VBG HCO3 VBG Total CO2 VBG O2 Sat (Calc) VBG Base Excess VBG Potassium Glucose Lactate FiO2 Sodium 134 Potassium 5.0 Chloride 103 Carbon Dioxide 22 Anion Gap 14 BUN 37 H Creatinine 1.9 H Est GFR ( Amer) 45 Est GFR (Non-Af Amer) 37 Random Glucose 195 H Calcium 8.9 Total Bilirubin 1.0 AST 40 ALT 28 Alkaline Phosphatase 43 Total Protein 7.2 Albumin 4.1 Globulin 3.2 Albumin/Globulin Ratio 1.3 Venous Blood Potassium Urine Color Martinez Urine Clarity Cloudy Urine pH 5.0 Ur Specific [place] 1.022 Urine Protein 30 Urine Glucose (UA) >=500 Urine Ketones Trace Urine Blood Negative Urine Nitrate Negative Urine Bilirubin Negative Urine Urobilinogen 2.0 Ur Leukocyte Esterase Neg Urine RBC (Auto) 2 Urine Microscopic WBC 6 H Urine Bacteria Rare Hyaline Casts >20 H 12/02/17 19:05 WBC RBC Hgb Hct MCV MCH MCHC RDW Plt Count MPV Neut % (Auto) Lymph % (Auto) Tyrrell % (Auto) Eos % (Auto) Baso % (Auto) Neut # (Auto) Lymph # (Auto) Tyrrell # (Auto) Eos # (Auto) Baso # (Auto) pO2 60 H VBG pH 7.39 VBG pCO2 39 L VBG HCO3 23.8 VBG Total CO2 24.8 VBG O2 Sat (Calc) 93.9 H VBG Base Excess -1.2 L VBG Potassium 4.1 Glucose 190 H Lactate 0.9 FiO2 21.0 Sodium 131.0 L Potassium Chloride 102.0 Carbon Dioxide Anion Gap BUN Creatinine Est GFR ( Amer) Est GFR (Non-Af Amer) Random Glucose Calcium Total Bilirubin AST ALT Alkaline Phosphatase Total Protein Albumin Globulin Albumin/Globulin Ratio Venous Blood Potassium 4.1 Urine Color Urine Clarity Urine pH Ur Specific [place] Urine Protein Urine Glucose (UA) Urine Ketones Urine Blood Urine Nitrate Urine Bilirubin Urine Urobilinogen Ur Leukocyte Esterase Urine RBC (Auto) Urine Microscopic WBC Urine Bacteria Hyaline Casts Assessment & Plan - Assessment and Plan (Free Text) Assessment: 52 yr old M admitted for SIRS and RAFAEL with PMHx uncontrolled IDDM type 2, hypothyroidism, HTN and HLD. SIRS -acute, criteria met with: Temp 102.6 F, HR 99bpm, WBC 12.4; viral vs bacterial -blood and urine cultures pending -overall malaise, body aches -CXR negative, EKG wnl, CBC no left shift -admit to tele -Vanco 1,250mg IV Q12 (day 1), Zosyn 3.375gm IV Q6, NS IV 500ml bolus+ 125mls/hr , Tylenol PRN fever -f/u Blood culture, urine culture Acute Kidney Injury -BUN 37/ Cr 1.9 (baseline is BUN 13-20; Cr 0.6-0.9) -likely secondary to dehydration -NS IV fluids -f/u next day BMP IDDM type 2 -chronic, uncontrolled (last HbA1c 9.2-08/2017)) -continue home insulin dose (Levemir 35 units SC BID, Humalog 25 units SC ACTID ) -hold metformin -accucheck ACHS -low consistent carbohydrate diet -f/u repeat HbA1c Hypothyroidism -chronic, uncontrolled (last TSH 5.16-08/2017) -continue home medication (Levothyroxine 100mcg PO QAM) -f/u repeat TSH Hypertension -chronic, controlled -home medications held due to hypotension, RAFAEL, K+ 5.0 (Lisinopril 20mg PO QD, HCTZ 12.5mg PO QD) -monitor BP Hyperlipidemia -chronic, controlled (08/2017: lipid panel: chol 130, TG 113, LDL 72, HDL 30) -continue home medication (Atorvastatin 20mg PO HS) Depression/Anxiety -chronic, controlled -continue Citalopram 20mg PO QPM DVT prophylaxis -Heparin 5,000 units SC Q8 - Date & Time Date: 12/02/17 Time: 20:00
[2017-12-02] MEDS: Sodium Chloride 0.9% 1,000 ML IV SCH (23:40)
[2017-12-03] MEDS: Piperacillin/Tazobact 3.375 GM in Sodium Chloride 0.9% 100 ML IVPB SCH ×2 (01:28→08:15)
[2017-12-03] MEDS: Sodium Chloride 0.9% 1,000 ML IV SCH (05:07)
[2017-12-03] MEDS ORDERED: Pneumococcal 23-Valent Vaccine IM ONE (06:00)
[2017-12-03 06:07] LABS: BASO # 0.1 K/uL (0.0-0.2); BASO % 0.8 % (0.0-2.0); EOS # 0.1 K/uL (0.0-0.7); EOS % 0.8 % (0.0-4.0); HEMOGLOBIN 12.8 g/dL (12.0-18.0); LYMPH # 2.4 K/uL (1.0-4.3); MEAN CORPUSCULAR HEMOGLOBIN 30.7 pg (27.0-31.0); MEAN CORPUSCULAR HGB CONC 34.5 g/dL (33.0-37.0); MEAN PLATELET VOLUME 8.7 fl (7.2-11.7); MONO # 0.7 K/uL (0.0-0.8); MONO % 8.3 % (0.0-10.0); NEUT # 5.3 K/uL (1.8-7.0); NEUT % 62.1 % (50.0-75.0); RBC 4.16 Mil/uL (4.40-5.90); RED CELL DISTRIBUTION WIDTH 13.4 % (11.5-14.5); WHITE BLOOD COUNT 8.5 K/uL (4.8-10.8)
[2017-12-03] MEDS ORDERED: Levothyroxine 100 MCG TAB PO SCH (06:30)
[2017-12-03 06:50] LABS: BLOOD UREA NITROGEN 35 mg/dl (9-20); CALCIUM 8.9 mg/dL (8.4-10.2); GFR NON-AFRICAN AMERICAN > 60
[2017-12-03] MEDS ORDERED: Insulin Lispro (humaLOG) 100 Units/ml Inj SC SCH ×2 (07:30)
--- NOTE | 2017-12-03 07:40 | CARD ---
APPROVED REPORT Date of service: 12/02/2017 EKG Measurement Heart [id number] <Conclusion> Normal sinus rhythm Normal ECG
[2017-12-03] MEDS ORDERED: Insulin Detemir 100 Units/ml Inj SC SCH ×3 (09:00→22:00)
--- NOTE | 2017-12-03 11:28 | CP.PCM.DIS ---
Provider - Provider Date of Admission: 12/02/17 19:48 Attending physician: Miguel Ángel Bedolla MD Time Spent in preparation of Discharge (in minutes): 35 Diagnosis - Discharge Diagnosis (1) SIRS (systemic inflammatory response syndrome) Status: Resolved Comment: Patient afebrile on day 2 following admission. Leukocytosis on presentation likely secondary to dehydration secondary to uncontrolled DM and polyuria. (2) Uncontrolled diabetes mellitus Status: Chronic (3) Dehydration Status: Resolved Hospital Course - Lab Results Lab Results: Most Recent Lab Values WBC 8.5 K/uL (4.8-10.8) 12/03/17 05:20 RBC 4.16 Mil/uL (4.40-5.90) L 12/03/17 05:20 Hgb 12.8 g/dL (12.0-18.0) 12/03/17 05:20 Hct 37.0 % (35.0-51.0) 12/03/17 05:20 MCV 89.0 fl (80.0-94.0) 12/03/17 05:20 MCH 30.7 pg (27.0-31.0) 12/03/17 05:20 MCHC 34.5 g/dL (33.0-37.0) 12/03/17 05:20 RDW 13.4 % (11.5-14.5) 12/03/17 05:20 Plt Count 224 K/uL (130-400) 12/03/17 05:20 MPV 8.7 fl (7.2-11.7) 12/03/17 05:20 Neut % (Auto) 62.1 % (50.0-75.0) 12/03/17 05:20 Lymph % (Auto) 28.0 % (20.0-40.0) 12/03/17 05:20 [place] % (Auto) 8.3 % (0.0-10.0) 12/03/17 05:20 Eos % (Auto) 0.8 % (0.0-4.0) 12/03/17 05:20 Baso % (Auto) 0.8 % (0.0-2.0) 12/03/17 05:20 Neut # (Auto) 5.3 K/uL (1.8-7.0) 12/03/17 05:20 Lymph # (Auto) 2.4 K/uL (1.0-4.3) 12/03/17 05:20 [place] # (Auto) 0.7 K/uL (0.0-0.8) 12/03/17 05:20 Eos # (Auto) 0.1 K/uL (0.0-0.7) 12/03/17 05:20 Baso # (Auto) 0.1 K/uL (0.0-0.2) 12/03/17 05:20 pO2 60 mm/Hg (30-55) H 12/02/17 19:05 VBG pH 7.39 (7.32-7.43) 12/02/17 19:05 VBG pCO2 39 mmHg (40-60) L 12/02/17 19:05 VBG HCO3 23.8 mmol/L 12/02/17 19:05 VBG Total CO2 24.8 mmol/L (22-28) 12/02/17 19:05 VBG O2 Sat (Calc) 93.9 % (40-65) H 12/02/17 19:05 VBG Base Excess -1.2 mmol/L (0.0-2.0) L 12/02/17 19:05 VBG Potassium 4.1 mmol/L (3.6-5.2) 12/02/17 19:05 Sodium 131.0 mmol/L (132-148) L 12/02/17 19:05 Chloride 102.0 mmol/L (98-107) 12/02/17 19:05 Glucose 190 mg/dL (75-110) H 12/02/17 19:05 Lactate 0.9 mmol/L (0.7-2.1) 12/02/17 19:05 FiO2 21.0 % 12/02/17 19:05 Sodium 135 mmol/l (132-148) 12/03/17 05:20 Potassium 4.7 MMOL/L (3.6-5.0) 12/03/17 05:20 Chloride 104 mmol/L (98-107) 12/03/17 05:20 Carbon Dioxide 24 mmol/L (22-30) 12/03/17 05:20 Anion Gap 12 (10-20) 12/03/17 05:20 BUN 35 mg/dl (9-20) H 12/03/17 05:20 Creatinine 1.2 mg/dl (0.8-1.5) 12/03/17 05:20 Est GFR ( Amer) > 60 12/03/17 05:20 Est GFR (Non-Af Amer) > 60 12/03/17 05:20 POC Glucose (mg/dL) 252 mg/dL (65-110) H 12/03/17 11:10 Random Glucose 436 mg/dL (75-110) H* D 12/03/17 05:20 Calcium 8.9 mg/dL (8.4-10.2) 12/03/17 05:20 Total Bilirubin 1.0 mg/dl (0.2-1.3) 12/02/17 17:07 AST 40 U/L (17-59) 12/02/17 17:07 ALT 28 U/L (21-72) 12/02/17 17:07 Alkaline Phosphatase 43 U/L (38-126) 12/02/17 17:07 Total Protein 7.2 G/DL (6.3-8.2) 12/02/17 17:07 Albumin 4.1 g/dL (3.5-5.0) 12/02/17 17:07 Globulin 3.2 gm/dL (2.2-3.9) 12/02/17 17:07 Albumin/Globulin Ratio 1.3 (1.0-2.1) 12/02/17 17:07 TSH 3rd Generation 4.27 mIU/ML (0.46-4.68) 12/03/17 05:20 Venous Blood Potassium 4.1 mmol/L (3.6-5.2) 12/02/17 19:05 Urine Color [place] (YELLOW) 12/02/17 18:32 Urine Clarity Cloudy (Clear) 12/02/17 18:32 Urine pH 5.0 (5.0-8.0) 12/02/17 18:32 Ur Specific [place] 1.022 (1.003-1.030) 12/02/17 18:32 Urine Protein 30 mg/dL (NEGATIVE) 12/02/17 18:32 Urine Glucose (UA) >=500 mg/dL (Normal) 12/02/17 18:32 Urine Ketones Trace mg/dL (NEGATIVE) 12/02/17 18:32 Urine Blood Negative (NEGATIVE) 12/02/17 18:32 Urine Nitrate Negative (NEGATIVE) 12/02/17 18:32 Urine Bilirubin Negative (NEGATIVE) 12/02/17 18:32 Urine Urobilinogen 2.0 mg/dL (0.2-1.0) 12/02/17 18:32 Ur Leukocyte Esterase Neg Hyun/uL (Negative) 12/02/17 18:32 Urine RBC (Auto) 2 /hpf (0-3) 12/02/17 18:32 Urine Microscopic WBC 6 /hpf (0-5) H 12/02/17 18:32 Urine Bacteria Rare (<OCC) 12/02/17 18:32 Hyaline Casts >20 /hpf (0-2) H 12/02/17 18:32 - Hospital Course Hospital Course: 52 y/o M admitted for SIRS and RAFAEL on 12/02/17 with PMHx uncontrolled IDDM type 2 , hypothyroidism, HTN and HLD. 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 The patient had a satisfactory hospital course and the following day he denies feeling fatigue, HUGHES , CP, Abdominal pain, body aches, also polyuria improved, WBC back to normal 8.5 , improved BUN 35 CR 1.2. Patient on 12/03 is found stable and decision is made to D/C home with intructions to f/u in 2 to 3 days with PMD, also encourage Oral hydraton and compliance with DM medications, on D/C day patient denies CP, HUGHES, SOB, palpitations, Abdominla pain, N/V/D, dysuria. D/C Impression: -Dehydration (resolved) secondary to uncontrolled DM with polyuria, also hot enviroment exposure, RAFAEL 2/2 dehydration and Leukocytosis (resolved) secondary to dehydraion and exertion -Uncontrolled DM Medications on D/C: Continue home meds (see prescription section) Discharge Exam - Head Exam Head Exam: ATRAUMATIC, NORMOCEPHALIC - Additional Findings Additional findings: - Constitutional No Acute Distress - Head Exam Head Exam: ATRAUMATIC, NORMOCEPHALIC - Eye Exam Eye Exam: EOMI, PERRL Pupil Exam: NORMAL ACCOMODATION - ENT Exam ENT Exam: Mucous Membranes Moist - Neck Exam Neck exam: Full Rom. Negative for: Lymphadenopathy, Meningismus, Tenderness, Thyromegaly - Respiratory Exam Respiratory Exam: Clear to Auscultation Bilateral, NORMAL BREATHING PATTERN, no wheezing. - Cardiovascular Exam Cardiovascular Exam: REGULAR RHYTHM, +S1, +S2 - GI/Abdominal Exam GI & Abdominal Exam: Normal Bowel Sounds, Soft (obese). absent: Distended, Firm , Rebound, Rigid, Tenderness - Extremities Exam Extremities exam: Positive for: full ROM, No pedal edema, tenderness - Back Exam FULL ROM. absent: CVA tenderness (L), CVA tenderness (R) - Neurological Exam Neurological exam: Alert, CN II-XII grossly Intact, Oriented x3 - Psychiatric Exam Psychiatric exam: Normal Affect, Normal Mood - Skin Skin Exam: Dry, Normal Color, Warm Discharge Plan - Discharge Medications Prescriptions: Aspirin [Ecotrin] 81 mg PO QPM 30 Days #30 tabec Atorvastatin [Lipitor] 20 mg PO DAILY #30 tab Gabapentin [Neurontin] 600 mg PO TID #90 tablet hydroCHLOROthiazide [Microzide] 12.5 mg PO QPM #30 cap Insulin Aspart, Recombinant [Novolog] 30 units SUBCUT AC #1 vial Insulin Detemir [Levemir] 40 units SC BID #1 vial Levothyroxine [Synthroid] 100 mcg PO DAILY #30 tab Lisinopril [Zestril] 20 mg PO DAILY #30 tab MetFORMIN [glucoPHAGE] 1,000 mg PO BID #60 tab - Follow Up Plan Condition: STABLE Disposition: HOME/ ROUTINE Instructions: Hyperglycemia, Adult, Dehydration, Adult (DC), Hyperglycemia, Adult (DC), Blood Glucose Monitoring, The ABCs of Diabetes, Diabetes and Diet Additional Instructions: Follow up with you PMD in 2 to 3 days Referrals: [facility] [Provider Group]
[2017-12-03 12:35] VITALS: BP 102/65; PULSE 67; RESP 18; TEMP 97.2; O2SAT 100
== END 2017-12-03 13:19 | disposition home or self-care (01) ==
LOC: H.ER 16:14 → H.ERHOLD 19:48 → INTOOBSV 19:48 → H.TEL 22:48
PROVIDERS: ADMIT Internal Medicine; ATTEND Internal Medicine
DX: N39.0 Urinary tract infection, site not specified (principal); N17.9 Acute kidney failure, unspecified; E86.0 Dehydration; E11.65 Type 2 diabetes mellitus with hyperglycemia; D72.829 Elevated white blood cell count, unspecified; E11.42 Type 2 diabetes mellitus with diabetic polyneuropathy; E03.9 Hypothyroidism, unspecified; E78.5 Hyperlipidemia, unspecified; E78.00 Pure hypercholesterolemia, unspecified; I10 Essential (primary) hypertension; F41.9 Anxiety disorder, unspecified; F32.9 Major depressive disorder, single episode, unspecified; Z89.422 Acquired absence of other left toe(s); Z23 Encounter for immunization; Z79.1 Long term (current) use of non-steroidal anti-inflammatories (NSAID); Z79.4 Long term (current) use of insulin; Z79.84 Long term (current) use of oral hypoglycemic drugs
CPT/HCPCS: 36415; 71046; 80048; 80053; 81003; 82043; 82570; 82803; 82948; 83036; 84443; 85025; 87040; 87086; 90471; 90732; 93005; 96365; 99285; G0378; J1644; J2543; J3370; J7030

== ENCOUNTER 2018-04-11 10:54 | Emergency (ER) | payer SELFPAY ==
[2018-04-11 10:54] VITALS: BMI 29.0
[2018-04-11 11:02] VITALS: BP 119/54; PULSE 92; RESP 16; TEMP 98.9; O2SAT 96
--- NOTE | 2018-04-11 11:15 | ED PDOC ---
HPI: CCC, URI, Sore Throat Time Seen by Provider: 04/11/18 11:04 Chief Complaint (Nursing): Flu-like Symptoms History Per: Patient Onset/Duration Of Symptoms: Days (11) Current Symptoms Are (Timing): Still Present Location Of Pain: Throat Associated Symptoms: Chills, Cough, Sputum Severity: Moderate Additional Complaint(s): Cough productive green sputum x 11 days. Assoc with chills. Denies SOB or fever. Past Medical History Vital Signs: Last Vital Signs Temp 98.9 F 04/11/18 11:02 Pulse 92 H 04/11/18 11:02 Resp 16 04/11/18 11:02 BP 119/54 L 04/11/18 11:02 Pulse Ox 96 04/11/18 11:02 - Medical History PMH: Anxiety, Depression, Diabetes, HTN, Hypercholesterolemia, Hypothyroidism Denies: HIV, Chronic Kidney Disease - Family History Family History: States: Unknown Family Hx - Home Medications Home Medications: Ambulatory Orders Medication Instructions Recorded Aspirin [Ecotrin] 81 mg PO QPM 30 Days #30 tabec 12/03/17 Atorvastatin [Lipitor] 20 mg PO DAILY #30 tab 12/03/17 Gabapentin [Neurontin] 600 mg PO TID #90 tablet 12/03/17 Insulin Aspart, Recombinant 30 units SUBCUT AC #1 vial 12/03/17 [Novolog] Insulin Detemir [Levemir] 40 units SC BID #1 vial 12/03/17 Levothyroxine [Synthroid] 100 mcg PO DAILY #30 tab 12/03/17 Lisinopril [Zestril] 20 mg PO DAILY #30 tab 12/03/17 MetFORMIN [glucoPHAGE] 1,000 mg PO BID #60 tab 12/03/17 hydroCHLOROthiazide [Microzide] 12.5 mg PO QPM #30 cap 12/03/17 Azithromycin [Zithromax] 250 mg PO DAILY #6 tab 04/11/18 Benzonatate [Tessalon Perle] 100 mg PO Q8 #12 capsule 04/11/18 - Allergies Allergies/Adverse Reactions: Allergies Allergy/AdvReac Type Severity Reaction Status Date / Time No Known Allergies Allergy Verified 04/11/18 11:13 Review of Systems ROS Statement: Except As Marked, All Systems Reviewed And Found Negative Constitutional: Positive for: Chills Respiratory: Positive for: Cough Physical Exam - Reviewed Nursing Documentation Reviewed: Yes Vital Signs Reviewed: Yes - Physical Exam Appears: Positive for: Non-toxic, No Acute Distress Head Exam: Positive for: ATRAUMATIC, NORMAL INSPECTION, NORMOCEPHALIC Skin: Positive for: Normal Color, Warm, DRY Eye Exam: Positive for: EOMI, Normal appearance, PERRL ENT: Positive for: Normal ENT Inspection Neck: Positive for: Normal, Painless ROM Cardiovascular/Chest: Positive for: Regular Rate, Rhythm Respiratory: Positive for: Rhonchi. Negative for: Wheezing, Respiratory Distress Gastrointestinal/Abdominal: Positive for: Normal Exam, Soft Back: Positive for: Normal Inspection Extremity: Positive for: Normal ROM Neurologic/Psych: Positive for: Alert, Oriented - ECG O2 Sat by Pulse Oximetry: 96 Medical Decision Making Medical Decision Making: Will obtain CXR, 11 days sxs, too late to tx for flu Disposition - Clinical Impression Clinical Impression: Bronchitis - Patient ED Disposition Is Patient to be Admitted: No Counseled Patient/Family Regarding: Studies Performed, Diagnosis, Need For Followup, Rx Given - Disposition Referrals: [facility] [Outside] Disposition: Routine/Home Disposition Time: 11:40 Condition: FAIR Prescriptions: Azithromycin [Zithromax] 250 mg PO DAILY #6 tab Benzonatate [Tessalon Perle] 100 mg PO Q8 #12 capsule Instructions: Acute Bronchitis Forms: [facility] (Algerian)
--- NOTE | 2018-04-11 17:49 | RAD ---
Date of service: 04/11/2018 HISTORY: cough COMPARISON: Chest radiographs 12/02/2017. TECHNIQUE: Chest PA and lateral FINDINGS: LUNGS: No active pulmonary disease. PLEURA: No significant pleural effusion identified. No pneumothorax apparent. CARDIOVASCULAR: No aortic atherosclerotic calcification present. Normal cardiac size. No pulmonary vascular congestion. OSSEOUS STRUCTURES: No significant abnormalities. VISUALIZED UPPER ABDOMEN: Normal. OTHER FINDINGS: None. IMPRESSION: No interval acute cardiopulmonary disease appreciated.
== END 2018-04-11 12:00 | disposition home or self-care (01) ==
LOC: H.ER 10:54
DX: J40 Bronchitis, not specified as acute or chronic (principal)